=== PATIENT | female | born 1990 | race Caucasian/White ===

== ENCOUNTER 2018-07-02 15:12 | Emergency (ER) | payer OTHER, SELFPAY ==
[2018-07-02 15:48] LABS: Bilirubin Small (Negative); Blood, Urine Trace (Negative); Clarity Cloudy (Clear); Glucose, Urine (Dipstick) Negative (Negative); Leukocyte Moderate (Negative); Nitrite Positive (Negative); Protein, Urine (Dipstick) 30 mg/dL (Neg-Trace)
[2018-07-02 15:52] LABS: Specific Gravity, Urine 1.026 (1.002-1.036)
[2018-07-02 15:54] LABS: Bacteria/HPF 3+ HPF (None Seen); RBC/HPF 0-3 HPF (0-3); Renal Epithelial 0-3 HPF (0-3)
[2018-07-02] MEDS ORDERED: Azithromycin 250 MG TAB ONE (16:30)
[2018-07-02] MEDS ORDERED: cefTRIAXone\\ROCEPHIN 250 MG VIAL ONE (16:30)
[2018-07-02] MEDS ORDERED: Lidocaine 1% PF 5 ML VIAL ONE (16:30)
[2018-07-02 16:38] LABS: Pregnancy Test - Urine (BHCG) Negative (Negative); Pregu Control Background? CLEAR/WHITE (CLR/WHITE); Pregu Control Bar Appear? YES (CONTROL BAR); Specific Gravity 1.026 (1.002-1.036)
[2018-07-02] MEDS ORDERED: metroNIDAZOLE 500 MG TAB ONE (17:00)
[2018-07-04 22:29] LABS: Chlamydia by PCR Not Detected (NotDetected); GC by PCR DETECTED (NotDetected)
== END 2018-07-02 17:05 | disposition home or self-care (01) ==
LOC: SCSER 15:12
DX: N30.00 Acute cystitis without hematuria (principal)
CPT/HCPCS: 81003; 81015; 81025; 87077; 87086; 87186; 87480; 87491; 87510; 87591; 87660; 96372; J0696; J2001

== ENCOUNTER 2019-01-06 18:22 | Emergency (ER) | payer SELFPAY ==
--- NOTE | 2019-01-06 19:21 | RAD ---
XR Lumbar Spine 2 Or 3 View History: [Pain] Comparison: None. Findings: No acute fracture or malalignment. Vertebral body heights and disc spaces are maintained. Paraspinal soft tissues are unremarkable. Impression: No abnormality appreciated.
== END 2019-01-06 19:42 | disposition home or self-care (01) ==
LOC: ERS 18:22
DX: S29.012A Strain of muscle and tendon of back wall of thorax, initial encounter (principal); S50.811A Abrasion of right forearm, initial encounter; S29.011A Strain of muscle and tendon of front wall of thorax, initial encounter; F41.9 Anxiety disorder, unspecified; F32.9 Major depressive disorder, single episode, unspecified; V49.9XXA Car occupant (driver) (passenger) injured in unspecified traffic accident, initial encounter
CPT/HCPCS: 72100

== ENCOUNTER 2019-01-09 22:11 | Emergency (ER) | payer SELFPAY ==
[2019-01-09] MEDS ORDERED: Ketorolac Tromethamine 60 MG/2 ML VIAL ONE (22:50)
--- NOTE | 2019-01-09 23:05 | RAD ---
XR Chest Pa Lat STANDARD History: [Chest pain] Comparison: Radiograph 2016 Findings: Lungs are clear. No pneumothorax or effusion. Cardiac silhouette and mediastinal contours a re within normal limits. Impression: No acute intrathoracic abnormality.
== END 2019-01-09 23:55 | disposition home or self-care (01) ==
LOC: SCSER 22:11
DX: R07.81 Pleurodynia (principal); F32.9 Major depressive disorder, single episode, unspecified; F41.9 Anxiety disorder, unspecified
CPT/HCPCS: 71046; 93005; 96372; J1885

== ENCOUNTER 2019-01-26 21:41 | Emergency (ER) | payer OTHER, SELFPAY ==
[2019-01-26] MEDS ORDERED: Ketorolac Tromethamine 30 MG/ML VIAL ONE (21:53)
--- NOTE | 2019-01-26 22:22 | RAD ---
AP view chest as well as AP and oblique views left ribs. HISTORY: Left rib pain. Frontal view chest and AP and oblique views left ribs are obtained. The lungs are well aerated. No evidence of active intrathoracic disease seen. AP and oblique views left ribs demonstrate no evidence of fractures or bony lesions. IMPRESSION: unremarkable AP view chest and AP and oblique views left ribs.
== END 2019-01-26 22:38 | disposition home or self-care (01) ==
LOC: SCSER 21:41
DX: R07.89 Other chest pain (principal); F41.9 Anxiety disorder, unspecified; F32.9 Major depressive disorder, single episode, unspecified
CPT/HCPCS: 96372; J1885

== ENCOUNTER 2019-03-24 09:15 | Emergency (ER) | payer SELFPAY ==
[2019-03-24 09:52] LABS: Bilirubin Negative (Negative); Blood, Urine Negative (Negative); Clarity Clear (Clear); Glucose, Urine (Dipstick) Negative (Negative); Leukocyte Trace (Negative); Nitrite Negative (Negative); Protein, Urine (Dipstick) Trace mg/dL (Neg-Trace)
[2019-03-24 09:54] LABS: Pregnancy Test - Urine (BHCG) Negative (Negative); Pregu Control Background? CLEAR/WHITE (CLR/WHITE); Pregu Control Bar Appear? YES (CONTROL BAR)
[2019-03-24 10:09] LABS: Bacteria/HPF 2+ HPF (None Seen); RBC/HPF 0-3 HPF (0-3)
[2019-03-24 10:10] LABS: Epithelial Cast None Seen LPF (None Seen)
[2019-03-25 01:28] LABS: Chlamydia by PCR Not Detected (NotDetected); GC by PCR Not Detected (NotDetected)
== END 2019-03-24 10:08 | disposition home or self-care (01) ==
LOC: SCSER 09:15
DX: N72 Inflammatory disease of cervix uteri (principal); F41.9 Anxiety disorder, unspecified; F32.9 Major depressive disorder, single episode, unspecified
CPT/HCPCS: 81003; 81015; 81025; 87480; 87491; 87510; 87591; 87660; 99284

== ENCOUNTER 2019-04-06 17:27 | Emergency (ER) | payer SELFPAY | END 2019-04-06 18:19 | disposition home or self-care (01) | LOC: ERS 17:27 | DX: F41.0 Panic disorder [episodic paroxysmal anxiety] (principal); F41.9 Anxiety disorder, unspecified; F32.9 Major depressive disorder, single episode, unspecified | CPT/HCPCS: 99284 ==

== ENCOUNTER 2019-10-22 23:28 | Emergency (ER) | payer OTHER, SELFPAY ==
[2019-10-23 00:16] LABS: #Basophils 0.1 thou/uL (0.0-0.2); #Eosinphils 0.7 thou/uL (0.0-0.7); #Monocytes 0.5 thou/uL (0.11-0.59); #Neutrophils 4.5 thou/uL (1.40-6.50); %Basophils 1.6 % (0.0-1.0); %Eosinophils 7.4 % (0.0-10.0); %Lymphocytes 34.2 % (21.0-51.0); %Monocytes 5.2 % (0.0-10.0); %Neutrophils 51.7 % (42.0-75.0); Hemoglobin 13.4 g/dL (12.0-16.0); Mean Corpuscular HGB CONC 34.5 g/dL (32.0-36.0); Mean Corpuscular Hemoglobin 29.8 pg (27.0-31.0); Mean Corpuscular Volume 86.3 fL (78.0-98.0); Mean Platelet Volume 8.2 fL (7.4-10.4); Platelet Count 275 thou/uL (130-400); RBC Distribution Width 12.1 % (11.5-14.5); Red Blood Cell (RBC) Count 4.49 mill/uL (4.20-5.40); White Blood Cell (WBC) Count 8.8 thou/uL (4.8-10.8)
[2019-10-23 00:39] LABS: ALT (SGPT) 11 U/L (8-55); AST (SGOT) 12 U/L (5-34); Albumin 4.1 g/dL (3.5-5.0); Alkaline Phosphatase 70 U/L (40-110); Anion Gap 15 mmol/L (10-20); BUN (Urea Nitrogen) 9 mg/dL (7.0-18.7); Bilirubin, Total 0.2 mg/dL (0.2-1.2); Calc. Creatinine Clearance 0 mL/min (70-130); Calcium 9.2 mg/dL (7.8-10.44); Carbon Dioxide 22 mmol/L (22-29); Chloride 104 mmol/L (98-107); Estimated GFR-MDRD Greater than 90; Globulin 3.2 g/dL (2.4-3.5); Glucose 102 mg/dL (70-105); Potassium 3.7 mmol/L (3.5-5.1); Protein, Total 7.3 g/dL (6.0-8.3); Sodium 137 mmol/L (136-145)
--- NOTE | 2019-10-23 07:53 | RAD ---
Portable frontal chest radiograph: 10/22/2019 COMPARISON: 09/02/2016 HISTORY: Chest pain FINDINGS: Lungs are clear. Heart and mediastinal contours appear within normal limits. IMPRESSION: No acute findings.
== END 2019-10-23 01:00 | disposition home or self-care (01) ==
LOC: ERS 23:28
DX: R07.89 Other chest pain (principal); F41.9 Anxiety disorder, unspecified; F32.9 Major depressive disorder, single episode, unspecified
CPT/HCPCS: 36415; 71045; 80053; 84484; 85025; 93005

== ENCOUNTER 2020-06-05 06:45 | Day surgery (SDC) | payer OTHER ==
[2020-06-05] MEDS ORDERED: hydrALAZINE 20 MG/ML VIAL SLOW IVP PRN (07:06)
[2020-06-05 07:25] VITALS: BMI 31.5
--- NOTE | 2020-06-05 07:41 | PDOC.FPROB ---
FMR OB H&P: HPI - History of Present Illness Chief Complaint: contractions Indentification: 29 yo at 38.4 wga by LMP c/w 17.6 wk sono History of Present Illness: Patient is here with contractions she says started this am around 0400. Decided to come to hospital at 05:30 since they were becoming more painful. Denies vaginal bleeding, discharge, LOF. Endorses FM. Leg swelling has started in past day or so. Was 2-3 cm in office on Sunday. Primary Care Physician: Jose FMR OB H&P: Current - Care : 8 Para: [id number] Gestational age: 38.4 wga Due date: 06/14/2020 Dating Criteria: 17 wk sono Course/Complications: Grand multip Late to care in 2T Incomplete care (need updated records faxed) - OB Labs Blood type: A RH: positive Antibody Screen: unknown HIV: unknown RPR: unknown HepBsAg: negative Rubella: immune Pap Smear: nilm GBS: negative H&H: 10.7, ferritin of 6 Additional labs: Hep C neg FMR OB H&P: History - Past Medical History PMH: denies - OB History OB History: x5 1 induced AB 1 spont AB Pre-clampsia in 1st at age 16. - [employer] History [employer] History: Chlamydia/gonorrhea this , per pt she was tested after treatment and negative - Surgical History Sx History: denies - Social History Social History: Denies smoking, drinking, drugs. - Family History Family History: Denies FMR OB H&P: Medications - Current Home Medications: Medication Instructions Recorded Confirmed Type Pnv No.95/Ferrous Fum/Folic AC 1 tab PO DAILY 06/05/20 06/05/20 History [ Caplet] Allergies/Adverse Reactions: Allergies Allergy/AdvReac Type Severity Reaction Status Date / Time No Known Allergies Allergy Verified 11/20/19 15:37 FMR OB H&P: ROS - Review of Systems General: denies: fever/chills ENT: denies: nasal congestion, sinus pain/pressure Cardiovascular: reports: edema. denies: chest pain Respiratory: denies: cough, shortness of breath Gastrointestinal: reports: abdominal pain. denies: nausea, vomiting, diarrhea, constipation Genitourinary (Female): reports: contractions. denies: dysuria, vaginal discharge, vaginal pain, vaginal bleeding Musculoskeletal: denies: pain Neurologic: denies: weakness, headache Integumentary: denies: itching, rash Hematologic/Lymphatic: denies: prolonged or excessive bleeding Psychological: denies: depression, anxiety FMR OB H&P: Vital Signs - Maternal Vital signs: BP 123/75 HR 98 - Heart Tones Baseline: 150 Variability: moderate Acceleration: present Deceleration: variable (intermittent) Category: category 2 Magazine contractions every: 1-4 min FMR OB H&P: Physical Exam - Physical Exam General: NAD, awake, alert and oriented HEENT: normocephalic and atraumatic, no scleral icterus, grossly normal vision, grossly normal hearing Neck: supple, trachea midline, no LAD Heart: RRR, normal S1/S2 Deviation from normal: 1+ pitting edema up to midshin bilaterally General: CTAB, no respiratory distress Abdomen: soft, gravid, non-tender Neurological: no focal deficit Skin: no rash Lymphatic: no unusual bruising or bleeding Psychiatric: intact recent and remote memory - Pelvic Exam SVE: 3/75/-3 per RN, posterior Estimated Weight: 7 lbs FMR OB H&P: A/P - Problem List (1) Grand multiparity Current Visit: Yes Status: Acute Code(s): Z64.1 - PROBLEMS RELATED TO MULTIPARITY Disposition: observe on L&D for ~2 hours. Recheck cervix at that time. Discussion: Date/Time: 06/05/20 0740 29 yo at 38.4 wga by 17 wk sono here for: Contractions - frequent contractions 1-4 min - continue to monitor for 1-2 hours - recheck cervix Grand multiparity Likely iron deficiency anemia of - assess hemorrhage risk Incomplete lab workup - need records or draw no care panel if admission Hx Pre-E in first at age 16 This H&P was discussed with Dr. Morales, who agrees with the above documentation and plan. OBGYN Faculty: 29 yo at early term at 3cm on first exam. Latent phase. HX GC and CHL treated this . Unclear GARLAND. Labor OBS and vag swab for [facility] for our record. Recheck CX in 2 HRS and home if no change. F/U with Dr mao then Signature: Carol Phan PGY2
[2020-06-05] MEDS ORDERED: FLU VACC QS2020-21(6MOS UP)/PF 60 MCG/0.5 ML SYRINGE IM ONE (08:00)
--- NOTE | 2020-06-05 09:31 | PDOC.BPN ---
- Brief Progress Note Encounter Date: 06/05/20 Encounter Time: 09:30 Recheck is the same at 3cm..cat 1. Patient states she would like to stay a bit longer. OK to extend for another hr. If not changed then, ok for outpatient care to await labor onset. Vitals reviewed.
--- NOTE | 2020-06-05 10:40 | PDOC.BPN ---
- Brief Progress Note Encounter Date: 06/05/20 Encounter Time: 10:27 S: Patient resting comfortably. No concerns. States intermittent contractions still present, no increase or decrease in intensity. Denies any LOF, vaginal bleeding. Endorses good movement. O: BP 120s/70s Patient resting comfortably Repeat SVE after 2 hours 3/75/-3. Repeat SVE after additional hour 3/75/-3. A/P: 29yo @ 38.5 by 17wk trino presents for labor check #Term SIUP, labor check - Initial SVE 3/75/-3 - Repeat after 2 hours 3/75/-3 - Repeat SVE after additional hour 3/75/-3 - Cat 1 strip, no contractions on monitor #H/o chlamydia during - s/p treatment, no GARLAND on file - Vaginal GC/C obtained and pending Dispo: Expressed with patient she is not in active labor and safe for discharge home with labor precautions. Patient initially expressed hesitation and would like to be monitored a little longer to ensure she is not progressing towards active labor. Recheck after an addition hour remained the same at 3/75/-3. Cat 1 strip, no contractions on monitor. Discussed findings with patient, still in latent labor with no active progression. Safe for discharge home at this time with good labor precautions. GC/C vaginal swab obtained for GARLAND. Patient voiced understanding and agreement of discharge plan and labor precautions. All questions answered. Above case and plan discussed with Dr. Kelly.
[2020-06-06 17:04] LABS: Chlamydia by PCR Not Detected (NotDetected); GC by PCR Not Detected (NotDetected)
== END 2020-06-05 10:40 | disposition home or self-care (01) ==
LOC: L&D/OP 06:45
PROVIDERS: ATTEND Obstetrics & Gynecology
DX: O47.1 False labor at or after 37 completed weeks of gestation (principal); O09.43 Supervision of pregnancy with grand multiparity, third trimester; O09.33 Supervision of pregnancy with insufficient antenatal care, third trimester; O09.293 Supervision of pregnancy with other poor reproductive or obstetric history, third trimester; Z3A.38 38 weeks gestation of pregnancy
CPT/HCPCS: 87491; 87591; 99283

== ENCOUNTER 2020-06-07 17:50 | Day surgery (SDC) | payer OTHER ==
[2020-06-07 18:18] VITALS: BMI 31.5
[2020-06-07] MEDS ORDERED: hydrALAZINE 20 MG/ML VIAL SLOW IVP PRN (20:23)
--- NOTE | 2020-06-07 21:01 | PRG ---
DATE OF SERVICE: 06/07/2020 PRIMARY OB: Dr. Manoj Garcia. CHIEF COMPLAINT: Abdominal pains. HISTORY OF PRESENT ILLNESS: The patient is a 29-year-old, G8, P5 female with an intrauterine at 39 weeks, presenting to Labor and Delivery with an episode of vaginal bleeding. She reports that she had sat down to go to the bathroom and noticed a discharge on her panties that looked like blood and came for evaluation. The patient was seen a couple of days ago to rule out labor and was noted to be 3 cm, 75% effaced at that time. The patient reports that she has had no other bleeding since that time that she had taken a picture of it for us to see. She denies fever, cough, headache, chest pain, shortness of breath, nausea, vomiting, diarrhea, constipation, hip problems, knee problems, or muscle weakness. She reports no other change in discharge. Denies urinary urgency or frequency. PAST MEDICAL HISTORY: Negative. PAST SURGICAL HISTORY: Negative. ALLERGIES: NO KNOWN DRUG ALLERGIES. MEDICATIONS: vitamins. SOCIAL HISTORY: Denies drug, alcohol, or tobacco use. OB LABS: Blood type is A positive. Antibody screen is unknown. She has hepatitis B surface antigen negative, rubella immune, GBS negative. REVIEW OF SYSTEMS: Per HPI. PHYSICAL EXAMINATION: VITAL SIGNS: Blood pressure 130/79, heart rate of 99, respiratory rate of 16, saturating 99% on room air, and temperature 98.2. GENERAL: She appears to be in no acute distress. She is alert, oriented, cooperative, and pleasant to interact with. HEAD: Normocephalic and atraumatic. LUNGS: Clear to auscultation bilaterally. HEART: Has a regular rate and rhythm. ABDOMEN: Gravid, soft, and nontender. EXTREMITIES: Nontender and nonedematous. CERVICAL EXAM: Per nursing staff is 3, 75% effaced, -1 station. Repeat exam 2 hours later is 3, 75% effaced, -2 station. heart tracing shows the fetus with a baseline in the 140s with moderate long-term variability, positive 15 x 15 accelerations, no decelerations. Tocometer shows contractions about every 3 to 6 minutes irregularly. ASSESSMENT AND PLAN: The patient is a 29-year-old female, G8, P5, with an intrauterine at 39 weeks' gestation. She has presented with complaints of abdominal pains, but has no evidence of active labor. She remains 3 cm as to her prior visit. [place] about 20 [address] from [place] hospital. She has been given term labor precautions. She has an appointment on Sunday to see her primary provider. Fetus has a category 1 tracing and reactive NST. The patient is being discharged home. Job ID: [id number]
== END 2020-06-07 20:25 | disposition home or self-care (01) ==
LOC: L&D/OP 17:50
PROVIDERS: ATTEND Obstetrics & Gynecology
DX: O46.93 Antepartum hemorrhage, unspecified, third trimester (principal); O99.891 Other specified diseases and conditions complicating pregnancy; R10.9 Unspecified abdominal pain; Z3A.39 39 weeks gestation of pregnancy
CPT/HCPCS: 99283

== ENCOUNTER 2020-06-09 02:08 | Inpatient (IN) | payer OTHER ==
[2020-06-09] MEDS ORDERED: hydrALAZINE 20 MG/ML VIAL SLOW IVP PRN ×3 (02:10→09:20)
[2020-06-09] MEDS ORDERED: Lactated Ringer's 1,000 ML IV SCH ×2 (02:15→02:30)
[2020-06-09] MEDS ORDERED: HYDROcodone/Acetaminophen 5/325 mg Tablet PO PRN ×4 (02:19→09:20)
[2020-06-09] MEDS ORDERED: Methylergonovine 0.2 MG/ML VIAL IM PRN (02:19)
[2020-06-09] MEDS ORDERED: Lidocaine 1% (PF) 30 ML VIAL SC PRN (02:19)
[2020-06-09] MEDS ORDERED: Misoprostol 200 MCG TAB PR PRN (02:19)
[2020-06-09] MEDS ORDERED: NS / Oxytocin 40 units/1000ml 1,000 ML IV PRN (02:19)
[2020-06-09] MEDS ORDERED: Diphenoxylate HCl/Atropine Tablet PO PRN ×2 (02:19)
[2020-06-09] MEDS ORDERED: Ibuprofen 800 MG TAB PO PRN (02:19)
[2020-06-09] MEDS ORDERED: Ondansetron PF 4 MG/2 ML Vial IVP PRN ×3 (02:19→09:20)
[2020-06-09] MEDS ORDERED: Carboprost 250 MCG/ML AMP IM PRN (02:19)
[2020-06-09] MEDS ORDERED: Promethazine HCl 25 MG/ML VIAL IM PRN ×3 (02:19→09:20)
[2020-06-09] MEDS ORDERED: Butorphanol Tartrate 1 MG/ML VIAL SLOW IVP PRN (02:19)
[2020-06-09] MEDS ORDERED: Acetaminophen 500 MG TAB PO PRN (02:19)
[2020-06-09 02:37] VITALS: BMI 31.5
[2020-06-09 02:45] LABS: Hemoglobin 7.9 g/dL (12.0-16.0); Mean Corpuscular HGB CONC 31.5 g/dL (32.0-36.0); Mean Corpuscular Hemoglobin 20.3 pg (27.0-31.0); Mean Corpuscular Volume 64.5 fL (78.0-98.0); Mean Platelet Volume 7.2 fL (7.4-10.4); Platelet Count 163 thou/uL (130-400); RBC Distribution Width 18.1 % (11.5-14.5); Red Blood Cell (RBC) Count 3.91 mill/uL (4.20-5.40); White Blood Cell (WBC) Count 12.7 thou/uL (4.8-10.8)
[2020-06-09] MEDS ORDERED: Fentanyl 4 mcg/Bup 0.1% Cadd 100 ML ONE (02:53)
[2020-06-09 03:21] LABS: HBSAg Index 0.18 S/CO (0-0.99); Hep B Surf Ag Non-Reactive S/CO (NonReactive)
[2020-06-09] MEDS ORDERED: diphenhydrAMINE 50 MG/ML VIAL IVP PRN (04:14)
[2020-06-09] MEDS ORDERED: EPHEDRINE 25 MG/5 ML SYRINGE SLOW IVP PRN (04:14)
[2020-06-09] MEDS ORDERED: Lactated Ringer's 500 ML IV PRN (04:14)
[2020-06-09] MEDS ORDERED: Acetaminophen 325 MG TAB PO PRN (04:14)
[2020-06-09] MEDS ORDERED: Naloxone HCl 0.4 mg/ml Vial IVP PRN ×2 (04:14)
[2020-06-09] MEDS ORDERED: Fentanyl 4 mcg/Bupivacaine 0.1% Cassette 100 ML EPIDURAL SCH (04:15)
[2020-06-09] MEDS ORDERED: Communication Order-Pharmacy FS SCH (04:15)
[2020-06-09 07:34] LABS: Syphilis Antibody Nonreactive (Nonreactive); Syphilis Antibody Index 0.05 S/CO (<1.00 Non-Reactive)
[2020-06-09] MEDS: NS / Oxytocin 40 units/1000ml 1,000 ML IV SCH ×2 (08:35→10:33)
[2020-06-09] MEDS ORDERED: Milk Of Magnesia 30 ML UDCUP PO PRN (09:20)
[2020-06-09] MEDS ORDERED: Bisacodyl 10 MG SUPP PR PRN (09:20)
[2020-06-09] MEDS ORDERED: Benzocaine-Menthol 82.5 ML CAN TOP PRN (09:20)
[2020-06-09] MEDS ORDERED: Zolpidem Tartrate 5 MG TAB PO PRN (09:20)
[2020-06-09] MEDS ORDERED: diphenhydrAMINE 25 MG CAP PO PRN (09:20)
[2020-06-09] MEDS ORDERED: Preparation H Ointment 28 GM TUBE PR PRN (09:20)
[2020-06-09] MEDS ORDERED: Docusate Calcium (SURFAK) 240 MG CAP PO SCH (09:30)
[2020-06-09 12:01] LABS: SARS-CoV-2 MS2 Positive; SARS-CoV-2 N Gene Negative; SARS-CoV-2 S Gene Negative; SARS-CoV-2 by NAA Not Detected (NotDetected); SARS-CoV-2 orf1ab Negative
[2020-06-09 12:25] LABS: HIV (1/2) Antibody/Antigen Non-Reactive (NonReactive)
[2020-06-09 12:41] LABS: Hep C IgG Ab Non-Reactive (NonReactive); Hep C Index 0.08 S/CO (0-0.79)
[2020-06-09] MEDS: Ibuprofen 800 MG TAB PO SCH ×2 (14:05→21:13)
[2020-06-09] MEDS: Ferrous Sulfate 325 MG TAB PO SCH (16:55)
[2020-06-09] MEDS: Docusate Calcium (SURFAK) 240 MG CAP PO SCH (21:13)
[2020-06-10] MEDS: Ibuprofen 800 MG TAB PO SCH ×2 (06:15→14:55)
[2020-06-10 07:37] LABS: #Basophils 0.1 thou/uL (0.0-0.2); #Eosinphils 0.3 thou/uL (0.0-0.7); #Lymphocytes 3.2 thou/uL (1.20-3.40); #Monocytes 0.8 thou/uL (0.11-0.59); #Neutrophils 10.1 thou/uL (1.40-6.50); %Basophils 0.7 % (0.0-1.0); %Eosinophils 2.4 % (0.0-10.0); %Lymphocytes 22.2 % (21.0-51.0); %Monocytes 5.5 % (0.0-10.0); %Neutrophils 69.3 % (42.0-75.0); Hemoglobin 6.2 g/dL (12.0-16.0); Mean Corpuscular HGB CONC 30.5 g/dL (32.0-36.0); Mean Corpuscular Hemoglobin 19.8 pg (27.0-31.0); Mean Corpuscular Volume 64.9 fL (78.0-98.0); Mean Platelet Volume 8.7 fL (7.4-10.4); Platelet Count 144 thou/uL (130-400); RBC Distribution Width 18.5 % (11.5-14.5); Red Blood Cell (RBC) Count 3.11 mill/uL (4.20-5.40); White Blood Cell (WBC) Count 14.6 thou/uL (4.8-10.8)
[2020-06-10 07:57] VITALS: BP 115/72; TEMP 97.9
[2020-06-10 08:00] LABS: Anisocytosis MODERATE=16-30 cells (100X) (0-5/hpf); Hypochromia SLIGHT = 6-15 cells (100X) (0-5/hpf); MDiff Complete? YES; Microcytosis MODERATE=15-30 cells (100X) (0-5/hpf); Platelet Morphology Comment Appears Adequate; Polychromasia SLIGHT = 2-3 cells (100X) (0-2/hpf)
[2020-06-10] MEDS ORDERED: FLU VACC QS2020-21(6MOS UP)/PF 60 MCG/0.5 ML SYRINGE IM ONE ×2 (09:00)
[2020-06-10] MEDS ORDERED: Prenatal Vitamin 1 TAB PO SCH (09:00)
[2020-06-10] MEDS ORDERED: Adacel (T-DAP) 0.5 ML SYRINGE IM ONE (09:20)
[2020-06-10] MEDS: Ferrous Sulfate 325 MG TAB PO SCH (09:23)
[2020-06-10] MEDS: Docusate Calcium (SURFAK) 240 MG CAP PO SCH (09:24)
== END 2020-06-10 16:45 | disposition home or self-care (01) | DRG 807 ==
LOC: L&D/OP 02:08 → L&D 02:20 → 3SW 10:57
PROVIDERS: ADMIT Obstetrics & Gynecology; ATTEND Obstetrics & Gynecology
PROC: 10E0XZZ Delivery of Products of Conception, External Approach (ICD-10-PCS; principal; 2020-06-09)
PROC: 10907ZC Drainage of Amniotic Fluid, Therapeutic from Products of Conception, Via Natural or Artificial Opening (ICD-10-PCS; 2020-06-09)
PROC: 0HQ9XZZ Repair Perineum Skin, External Approach (ICD-10-PCS; 2020-06-09)
DX: O70.0 First degree perineal laceration during delivery (principal); Z37.0 Single live birth; Z3A.39 39 weeks gestation of pregnancy
CPT/HCPCS: 36415; 85025; 85027; 86780; 86803; 86850; 86900; 86901; 87340; 87389; 87635; J2001; J2210; J3490; U0003

== ENCOUNTER 2021-08-08 17:51 | Emergency (ER) | payer OTHER ==
[2021-08-08] MEDS ORDERED: Acetaminophen 500 MG TAB ONE (19:11)
== END 2021-08-08 19:10 | disposition home or self-care (01) ==
LOC: ERS 17:51
DX: O99.891 Other specified diseases and conditions complicating pregnancy (principal); M25.561 Pain in right knee; Z3A.33 33 weeks gestation of pregnancy; W18.39XA Other fall on same level, initial encounter

== ENCOUNTER 2024-05-21 19:09 | Emergency (ER) | payer OTHER | END 2024-05-21 19:38 | disposition home or self-care (01) | LOC: ERS 19:09 | DX: L23.7 Allergic contact dermatitis due to plants, except food (principal) | CPT/HCPCS: 99282 ==